=== PATIENT | male | born 1980 | race Caucasian/White ===

== ENCOUNTER 2016-10-22 00:41 | Emergency (ER) | payer MEDICAID ==
[~2016-10-22] VITALS: Ht 182.9 cm; Wt 86.4 kg
[2016-10-22 00:46] VITALS: BP 125/66
[2016-10-22] MEDS ORDERED: KETOROLAC TROMETHAMINE 30 MG/ML VIAL IM ONE (01:15)
== END 2016-10-22 01:45 | disposition home or self-care (01) ==
LOC: EMS 00:45
DX: M54.5 Low back pain (principal); I10 Essential (primary) hypertension; F12.10 Cannabis abuse, uncomplicated
CPT/HCPCS: 96372; 99283; J1885